=== PATIENT | male | born 1935 | race Caucasian/White ===

== ENCOUNTER → 2019-05-01 10:17 | Outpatient (CLI) | payer MEDICARE, OTHER, SELFPAY ==
[2019-05-02 08:52] LABS: Appearance Urine UA CLEAR; Bilirubin Urine UA NEGATIVE (NEGATIVE); Color Urine UA YELLOW; Glucose Urine UA TRACE g/dL (Negative); Ketones Urine UA NEGATIVE (NEGATIVE); Leukocyte Esterase Urine UA 2+ (NEGATIVE); Nitrite Urine UA POSITIVE (Negative); Occult Blood Urine UA 3+ (Negative); Protein Urine UA 2+ (Negative); RBC Urine 10-30/HPF (0-5/HPF); pH Urine UA 5.5 (4.5-8.0)
[2019-05-02 08:53] LABS: Bacteria Urine Many (>30); WBC Urine >100/HPF (0-5/HPF)
== END ==
PROVIDERS: Visit Provider Surgery
DX: N39.0 Urinary tract infection, site not specified (principal)
CPT/HCPCS: 81001; 87077; 87086; 87186